=== PATIENT | female | born 1990 | race African-American/Black ===

== ENCOUNTER 2017-09-07 06:43 | Emergency (ER) | payer OTHER ==
[~2017-09-07] VITALS: Ht 167.6 cm; Wt 90.9 kg
[2017-09-07] MEDS ORDERED: FAMOTIDINE 10 MG/ML 2 ML VIAL IVP ONE (07:15)
[2017-09-07] MEDS ORDERED: SODIUM CHLORIDE 0.9% 1,000 ML IV ONE (07:15)
[2017-09-07] MEDS ORDERED: ONDANSETRON HCL 4 MG/2 ML VIAL IVP ONE (07:15)
[2017-09-07 07:21] LABS: BASOPHILS % (AUTO) 0.2 % (0.0-2.0); EOSINOPHILS % (AUTO) 0 % (1.0-6.0); HEMATOCRIT 35.8 % (36-46); HEMOGLOBIN 11.8 g/dL (12.0-16.0); LYMPHOCYTES # (AUTO) 1.1 K/uL (1.0-4.8); LYMPHOCYTES % (AUTO) 9.7 % (22.0-44.0); MEAN CORPUSCULAR VOLUME 91 fL (80-100); MONOCYTES # (AUTO) 0.3 K/uL (0.1-1.0); MONOCYTES % (AUTO) 2.5 % (2.0-9.0); NEUTROPHILS # (AUTO) 10.4 K/uL (1.8-7.7); PLATELET COUNT (AUTO) 287 K/uL (150-450); RED BLOOD CELL COUNT(AUTO) 3.94 MIL/uL (4.00-5.20); RED CELL DISTRIBUTION WIDTH 14.6 % (11.5-14.5); WHITE BLOOD COUNT (AUTO) 11.9 K/uL (4.5-11.0)
[2017-09-07 07:22] LABS: NEUTROPHILS % (AUTO) 87.6 % (40.0-70.0); RBC MORPHOLOGY COMMENT NORMAL RBC MORPH
[2017-09-07 07:26] LABS: APPEARANCE,URINE CLEAR (CLEAR); GLUCOSE, URINE (UA) NEGATIVE (NEGATIVE); KETONES,URINE NEGATIVE (NEGATIVE); LEUKOCYTE ESTERASE ,URINE NEGATIVE (NEGATIVE); OCCULT BLOOD,URINE SMALL (NEGATIVE); PH,URINE 7.5 (5.0-8.0); PROTEIN,URINE NEGATIVE (NEGATIVE)
[2017-09-07 07:27] LABS: ADD UA MICROSCOPIC YES
[2017-09-07 07:29] LABS: ANION GAP 5 mmol/L (8-16); CALCIUM, TOTAL 9.1 mg/dL (8.8-10.5); CARBON DIOXIDE 30 mmol/L (22-29); CHLORIDE 103 mmol/L (98-107); CREATININE 1.04 mg/dL (0.60-1.30); GLOMERULAR FILTR. RATE CALC > 60 mL/min (>60); POTASSIUM 4.1 mmol/L (3.5-5.1); SODIUM SERUM 138 mmol/L (136-145); UREA NITROGEN, BLOOD 12 mg/dL (7-18)
[2017-09-07 07:35] LABS: ALANINE AMINOTRANSFERASE 26 U/L (12-78); ALBUMIN 3.8 g/dL (3.4-5.0); ASPARTATE AMINOTRANSFERASE 20 U/L (15-37); BILIRUBIN,TOTAL 0.2 mg/dL (0.1-1.0); TOTAL PROTEIN, SERUM 7.9 g/dL (6.4-8.2)
[2017-09-07 07:40] LABS: RBC,URINE 0-2 /HPF (0-2); SQUAMOUS EPITHELIAL CELL,UR Few /LPF (None Seen); WBC,URINE 0-2 /HPF (0-5)
[2017-09-07 10:54] VITALS: BP 147/92
== END 2017-09-07 11:10 | disposition home or self-care (01) ==
LOC: EMS 06:45
DX: K29.70 Gastritis, unspecified, without bleeding (principal); K29.90 Gastroduodenitis, unspecified, without bleeding
CPT/HCPCS: 36415; 80053; 81001; 83690; 84703; 85025; 96361; 96374; 96375; 99285; J2405; J3490; J7030

== ENCOUNTER 2018-06-12 10:05 | Emergency (ER) | payer OTHER ==
[~2018-06-12] VITALS: Ht 167.6 cm; Wt 90.9 kg
[2018-06-12] MEDS ORDERED: VITAD400 PO (10:26)
[2018-06-12] MEDS ORDERED: PROPARACAINE HCL 0.5% 15 ML OPHTHALMIC SOLUTION OS ONE (11:15)
[2018-06-12] MEDS ORDERED: SODIUM CHLORIDE 0.9% 1,000 ML IV ONE (11:15)
[2018-06-12 12:06] VITALS: BP 131/81
== END 2018-06-12 12:06 | disposition home or self-care (01) ==
LOC: EMS 10:06
DX: T54.91XA Toxic effect of unspecified corrosive substance, accidental (unintentional), initial encounter (principal); H10.212 Acute toxic conjunctivitis, left eye; Y92.89 Other specified places as the place of occurrence of the external cause
CPT/HCPCS: 99283; J7030

== ENCOUNTER 2019-02-18 14:54 | Emergency (ER) | payer OTHER ==
[~2019-02-18] VITALS: Ht 167.6 cm; Wt 90.5 kg
[~2019-02-18 14:54] MED LIST: VITAD400 PO
[2019-02-18] MEDS ORDERED: PERTUSS(ACELL),DIPH,TET VAC/PF 0.5 ML VIAL IM ONE (16:15)
[2019-02-18] MEDS ORDERED: POVIDONE-IODINE 10% 15 ML SOLUTION UD TP ONE (16:15)
[2019-02-18] MEDS ORDERED: IBUPROFEN 600 MG TABLET PO ONE (16:15)
[2019-02-18] MEDS ORDERED: AMOX TR/POT CLAV 875 MG/125 MG TABLET PO ONE (16:15)
[2019-02-18] MEDS ORDERED: BACITRACIN 0.9 GM PACKET OINTMENT TP ONE (16:30)
[2019-02-18 17:18] VITALS: BP 126/74
== END 2019-02-18 17:20 | disposition home or self-care (01) ==
LOC: EMS 14:54
DX: S61.531A Puncture wound without foreign body of right wrist, initial encounter (principal); S61.032A Puncture wound without foreign body of left thumb without damage to nail, initial encounter; W54.0XXA Bitten by dog, initial encounter; Y93.89 Activity, other specified; Y92.89 Other specified places as the place of occurrence of the external cause; Y99.8 Other external cause status
CPT/HCPCS: 90471; 90715